=== PATIENT | female | born 1985 | race Hispanic/Latino ===

== ENCOUNTER 2018-02-17 08:49 | Day surgery (SDC) | payer OTHER ==
[2018-02-16 09:31] VITALS: BMI 28.8
[2018-02-17] MEDS ORDERED: ceFAZolin IV 1 gm in Dextrose 2 GM/100 ML BAG IVPB ONE (09:28)
[2018-02-17] MEDS ORDERED: Lactated Ringer's 1,000 ML IV ONE ×3 (09:30→15:55)
[2018-02-17 10:10] LABS: HEMOGLOBIN 13.4 g/dL (12.0-16.0); MEAN CELL VOLUME 90.3 fl (81.0-99.0); MEAN CORPUSCULAR HEMOGLOBIN 30.7 pg (27.0-31.0); RBC 4.36 Mil/uL (3.80-5.20); RED CELL DISTRIBUTION WIDTH 14.1 % (11.5-14.5); WHITE BLOOD COUNT 5.1 K/uL (4.8-10.8)
[2018-02-17] MEDS ORDERED: Succinylcholine 200 mg/10 ml Inj IV ONE (11:51)
[2018-02-17] MEDS ORDERED: Midazolam 2 MG/2 ML VIAL ONE (11:51)
[2018-02-17] MEDS ORDERED: Propofol 10 mg/ml Inj (20 ML) ONE (11:51)
[2018-02-17] MEDS ORDERED: Lidocaine 4% (Laryng-O-Jet) Kit MM ONE (11:51)
[2018-02-17] MEDS ORDERED: ePHEDrine 50 mg/ml Inj ONE (11:51)
[2018-02-17] MEDS ORDERED: Rocuronium 10 mg/ml (5 ml) ONE (11:51)
[2018-02-17] MEDS ORDERED: Neostigmine 1:1000 (1 mg/ml) Inj ONE (12:51)
[2018-02-17] MEDS: Bupivacaine 0.5% Inj(30mL) ONE ×2 (13:02→13:15)
[2018-02-17] MEDS ORDERED: Lactated Ringer's 1,000 ML IV SCH ×2 (15:00→16:00)
[2018-02-17] MEDS ORDERED: Oxycodone/Acetaminophen 5/325 mg Tab PO PRN (15:46)
[2018-02-17 20:31] VITALS: BP 113/60; PULSE 70; RESP 20; TEMP 98.5; O2SAT 99
--- NOTE | 2018-02-25 15:08 | OP ---
PROCEDURE DATE: 02/17/2018 PREOPERATIVE DIAGNOSES: Pelvic pain, dysmenorrhea, dyspareunia, rule out endometriosis. POSTOPERATIVE DIAGNOSES: Pelvic pain, dysmenorrhea, dyspareunia, rule out endometriosis, plus pelvic endometriosis. PROCEDURE PERFORMED: Cystoscopy with bilateral catheterization and injection of IC-Green dye, diagnostic hysteroscopy, robotic da [place] laparoscopy, bilateral ureterolysis, and excision of anterior bladder mass. SURGEON: Ankur Conde MD [employer] SUPERVISOR: FLORINA Reeder TYPE OF ANESTHESIA: General endotracheal. ESTIMATED BLOOD LOSS: Minimal. COMPLICATIONS: None. SPECIMENS: Multiple specimens sent to pathology. INDICATION FOR THE PROCEDURE: The patient is a 32-year-old with a history of dysmenorrhea, dyspareunia, and pelvic pain. The patient was counseled with regards to the risks and benefits of the surgical procedure and she was consented and taken to the OR. DESCRIPTION OF PROCEDURE: After adequate anesthesia was obtained, the patient was placed in dorsal lithotomy position with extreme care to pad all the areas potentially prone to any pressure. The patient's hips also were placed in a comfortable position without hyper-extending or hyper-flexing of the hips. A time-out was then taken according to hospital policy and the procedure was started. The first part of the procedure involved a cystoscopy. The cystoscope was inserted into bladder under direct visualization. The bladder was filled with 200 mL of saline. Both ureters were noticed to be in normal anatomical position. There were no lesions or masses in the bladder or tumors. Then the left ureter was cannulized all the way to the distal ureter and 5 mL of IC-Green were injected. The 5-Uzbek open ended catheter was then taken out injected into the contralateral ureter all the way to the distal ureter where another 5 mL of IC-Green were injected. At this point, the catheter was removed and was replaced by a 16-Uzbek Krishnan catheter. Attention was in the vaginal area then where a speculum was placed in the vagina. The anterior lip of the cervix was grasped gently and the cervix was gently dilated and hysteroscope was inserted in the uterine cavity revealing absence of lesions, tumors or polyps. At this point, attention was in the abdomen where an open laparoscopy was performed utilizing standard technique. The peritoneum was entered in a blunt fashion and a cannula was then placed. Under direct visualization, three additional ports were placed, left upper quadrant, right upper quadrant, and left mid quadrant. At this point, the da [place] Xi robot was then docked and the procedure was started. There appeared to be evidence of endometriotic lesions both in anterior bladder area as well as in the pelvis. Procedure first started on the pelvis where after elevating the ovary, the peritoneum was entered and the retroperitoneal area was entered and the peritoneum containing endometriosis was then progressively dissected off, and with large area of peritoneum containing potentially endometriosis, new inflammatory tissue was excised lateralizing the left ureter. The excision was thus continued by the left uterosacral ligament and posterior aspect of the cervix where again it was dissected off as well as the cul-de-sac area, which was also excised with great care not to injure the bowel. Attention was then contralateral side, the right side where after elevating the ovary, the peritoneum was entered and progressive dissection was performed lateralizing the ureter and dissecting off an area of peritoneum all the way down to the uterosacral ligaments, which were also dissected off and the posterior cul-de-sac area, which was also excised. At this point, attention was on the cul-de-sac area where an additional area of peritoneum was then excised. Additionally, attention was on the bladder side where an endometriotic implant was noticed to be on the bladder. This was excised with great care not to enter the muscularis of the bladder. In addition, lesions still anteriorly in the bladder were then also excised on the right hand side of the area. At this point, it was checked for hemostasis and they appeared to be excellent. The da [employer] Xi robot was then docked. The instruments were removed. The abdomen was de-sufflated. The incision was closed in layers with 0 PDS for the fascia and 4-0 Monocryl for the skin. At the end of the procedure, all tapes and instruments counts were correct. The patient tolerated the procedure well and was taken to the recovery room in excellent condition. Ankur Conde MD
== END 2018-02-17 21:50 | disposition home or self-care (01) ==
LOC: H.OPSURG 08:49 → H.PEDS 20:18 → H.OPSURG 21:50
PROVIDERS: ATTEND Obstetrics & Gynecology Reproductive Endocrinology
DX: N80.8 Other endometriosis (principal); D64.9 Anemia, unspecified; E66.9 Obesity, unspecified; N94.6 Dysmenorrhea, unspecified
CPT/HCPCS: 36415; 58662; 85027; 86850; 86900; 88305; C1729; J0330; J0690; J1170; J2001; J2250; J2405; J2704; J2710; J2765; J3010; J7030; J7040; J7120